=== PATIENT | female | born 1995 | race Caucasian/White ===

== ENCOUNTER 2019-06-08 18:38 | Emergency (ER) | payer OTHER ==
[~2019-06-08] VITALS: Ht 167.6 cm; Wt 62.0 kg
--- NOTE | 2019-06-08 19:05 | NUR ---
ASSUMED CARE FROM DAY SHIFT
--- NOTE | 2019-06-08 19:56 | NUR ---
Xray awaiting CT Cspine clearance before proceeding
--- NOTE | 2019-06-08 20:35 | NUR ---
PT. BACK FROM CT. CALLED [facility] ABOUT X-RAYS, THEY STATE NEED CT RESULTS PRIOR TO X-RAYS.
--- NOTE | 2019-06-08 20:54 | NUR ---
X-RAY AWARE CT IMAGING RESULTED NOW.
--- NOTE | 2019-06-08 20:57 | NUR ---
PT. TO X-RAY VIA [facility].
[2019-06-08 21:38] VITALS: BP 110/82
== END 2019-06-08 21:41 | disposition home or self-care (01) ==
LOC: ED 21:00
DX: G89.11 Acute pain due to trauma (principal); M54.2 Cervicalgia; M54.5 Low back pain; M54.6 Pain in thoracic spine; V49.09XA Driver injured in collision with other motor vehicles in nontraffic accident, initial encounter; Y93.89 Activity, other specified; Y92.410 Unspecified street and highway as the place of occurrence of the external cause; Y99.8 Other external cause status
CPT/HCPCS: 72072; 72110; 72125; 99284